=== PATIENT | male | born 1990 | race Caucasian/White ===

== ENCOUNTER 2018-01-16 11:30 | Emergency (ER) | payer BC ==
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
[2018-01-16] MEDS ORDERED: Sodium Chloride 0.9% 1,000 ML IV SCH (11:45)
[2018-01-16] MEDS ORDERED: Lidocaine 1% 50 ML MDV ONE (12:13)
[2018-01-16] MEDS ORDERED: Metoclopramide 10 MG/2 ML SDV IVPUSH ONE (12:17)
[2018-01-16] MEDS ORDERED: HYDROmorphone 1 MG/ML Syringe IVPUSH ONE (12:18)
--- NOTE | 2018-01-16 12:21 | CT ---
CT cervical spine Technique: Multiple axial sections were obtained from above C1 inferiorly to the bottom of T2. Reconstructed sagittal and coronal images were reviewed. Findings: Vertebral body heights and disc spaces are maintained. Vertebral bodies and posterior arches are intact. No fracture is seen. Mild scoliosis is seen. No bony central lower bony neural foraminal stenosis is seen. Impression: 1. Nothing acute is seen on CT study of the cervical spine. Diagnostic code #1
--- NOTE | 2018-01-16 12:30 | CT ---
CT lumbar spine Technique: Multiple axial sections were obtained through the lumbar spine. Reconstructed coronal and sagittal images were obtained. Findings: Vertebral body heights and disc spaces are maintained. Vertebral bodies and posterior arches are intact. Mild posterior disc bulge is noted at L4-5. No traumatic disc herniation is seen. No bony central or bony neural foraminal stenosis is seen. No abnormal subluxation is seen. Impression: 1. Posterior disc bulge at L5-S1. 2. Nothing acute is seen on CT study of the lumbar spine. Diagnostic code #2
--- NOTE | 2018-01-16 12:31 | CT ---
CT thoracic spine Technique: Multiple axial sections through the thoracic spine were obtained. Reconstructed sagittal and coronal images were reviewed. Findings: Vertebral body heights are maintained. No fracture is seen. No abnormal subluxation is identified. No bony central or bony neural foraminal stenosis is seen. Posterior spurring is noted at T11-12 with posterior disc bulge. Scattered disc space narrowing is seen within the thoracic spine which is developmental. Impression: 1. Incidental findings. Nothing acute is seen on CT study of the thoracic spine. Diagnostic code #2
--- NOTE | 2018-01-16 12:31 | CT ---
Head CT Technique: Multiple axial sections through the brain were obtained. Intravenous contrast was not utilized. Findings: Soft tissue hematoma seen within the posterior scalp. Skin injury is also noted. Ventricles along the basal cisterns and sulci over the convexities are within normal limits. No abnormal parenchymal densities are seen. No evidence of intracranial hemorrhage. No midline shift or mass effect is seen. Bone window settings were reviewed which shows a small retention cyst within the left maxillary sinus. Air-fluid is noted within the right maxillary sinus. Moderate mucosal thickening seen within the ethmoid sinuses as well as small air-fluid level within the right frontal sinus. Fracture is noted within the anterior right frontal sinus. Fracture is identified within the right skull base involving the inferior temporal bone which extends into the apex of the right orbit. Fracture also noted within the lateral right maxillary wall as well as fracture within the anterior maxillary sinus possibly involving the inferior orbital rim. Difficult to exclude an inferior orbital floor blowout fracture on the right side. No additional skull finding is seen. Impression: 1. Skull base fracture within the inferior temporal bone on the right side. 2. Fracture within the anterior right frontal sinus as well as fracture within the right lateral maxillary wall and anterior right maxillary wall with possible fracture within the inferior orbital rim on the right side. Difficult to exclude inferior right orbital blowout fracture. 3. Soft tissues hematoma and swelling within the posterior soft tissues as well as skin injury. 4. Sinus findings as noted above likely representing chronic sinusitis as well as change from recent trauma. 5. No acute intracranial abnormality is seen. Diagnostic code #3
[2018-01-16] MEDS ORDERED: ceFAZolin 2 GM in Premix Bag 1 BAG IV ONE (12:40)
[2018-01-16] MEDS ORDERED: Potassium Chloride 10 MEQ in Premix Bag 1 BAG IV ONE (13:38)
--- NOTE | 2018-01-16 14:03 | CT ---
CT facial bones Technique: Multiple axial sections through the facial bones were obtained. Reconstructed coronal and sagittal images were reviewed. Comparison: Prior head CT study performed on the same day (11:32 AM). Findings: Fracture is again noted within the superior right orbital roof. Small amount of intracranial air is seen. Fracture is again noted within the inferior right temporal floor. Nondisplaced fracture within the right lateral maxillary wall and anterior maxillary wall. Nondisplaced fracture is seen within the inferior orbital floor on the right side. No left-sided fracture is seen. Diffuse mucosal thickening is seen throughout the paranasal sinuses. Impression: 1. Fractures within the right maxillary sinus as well as inferior floor of the right temporal bone. 2. Fracture within the superior right orbital roof with small amount of intracranial air. 3. Nondisplaced inferior right orbital floor fracture is noted. 4. Diffuse mucosal thickening within the paranasal sinuses. Diagnostic code #3
== END 2018-01-16 15:00 ==
LOC: JD.ED 11:30
DX: S02.40CA Maxillary fracture, right side, initial encounter for closed fracture (principal); S02.19XA Other fracture of base of skull, initial encounter for closed fracture; S06.9X0A Unspecified intracranial injury without loss of consciousness, initial encounter; S02.101A Fracture of base of skull, right side, initial encounter for closed fracture; S01.01XA Laceration without foreign body of scalp, initial encounter; S01.112A Laceration without foreign body of left eyelid and periocular area, initial encounter; V86.59XA Driver of other special all-terrain or other off-road motor vehicle injured in nontraffic accident, initial encounter
CPT/HCPCS: 12005; 12013; 36415; 70450; 70486; 71045; 72125; 72128; 72131; 80053; 82150; 82550; 84132; 85007; 85027; 85610; 85730; 93005; 96361; 96365; 96375; 99285; J0690; J1170; J2765; J3480; J7040; 93010